=== PATIENT | female | born 1975 | race Caucasian/White ===

== ENCOUNTER → 2024-08-24 12:32 | Outpatient (REF) | payer OTHER, SELFPAY | LOC: HWRAD 12:32 | PROVIDERS: ATTENDING PHYSICIAN Family Medicine | DX: M25.571 Pain in right ankle and joints of right foot (principal) | CPT/HCPCS: 73610 ==

== ENCOUNTER → 2025-01-07 07:51 | Outpatient (REF) | payer OTHER, SELFPAY | LOC: HWRAD 07:51 | PROVIDERS: ATTENDING PHYSICIAN Obstetrics & Gynecology; FAMILY PHYSICIAN Family Medicine | DX: R14.0 Abdominal distension (gaseous) (principal) | CPT/HCPCS: 76830; 76856 ==

== ENCOUNTER 2025-02-25 06:18 | Day surgery (SDC) | payer OTHER, SELFPAY | END 2025-02-25 14:05 | disposition home or self-care (01) | LOC: GI 06:18 | PROVIDERS: ATTENDING PHYSICIAN Internal Medicine Gastroenterology | DX: D50.9 Iron deficiency anemia, unspecified (principal); K44.9 Diaphragmatic hernia without obstruction or gangrene; K31.7 Polyp of stomach and duodenum; K31.89 Other diseases of stomach and duodenum; K29.40 Chronic atrophic gastritis without bleeding; K31.A0 Gastric intestinal metaplasia, unspecified; K31.A12 Gastric intestinal metaplasia without dysplasia, involving the body (corpus) | CPT/HCPCS: 43239; 88305; 88341; 88342 ==